=== PATIENT | female | born 1955 | race Caucasian/White ===

== ENCOUNTER → 2016-04-15 | Outpatient (CLI) | payer BC ==
[~2016-04-15] MED LIST: HCTZ12.5T; LSNP10T; osteo bioflex
--- OUTSIDE RECORDS SUMMARY | 2016-04-15 15:40 | XMS REPORT ---
Author Author SARA BULLOCK Organization [employer] Address Unknown Phone Unavailable Care Team Providers Care Engineering Specialist Technician Name Role Phone SARA BULLOCK CP Unavailable Allergies No Known Allergies Problems Problem Type Condition Code Onset Dates Condition Status Assessment Encounter for immunization Z23 Active Medications No Known Medications Procedures Procedure Coding System Code Date FLUARIX QUAD (3 & UP)-GSK-2014 CPT-4 90173 2014 SINGLE IMMUNIZATION ADMIN CPT-4 85340 2014 TDAP (BOOSTRIX) CPT-4 65306 2014 IMMUNIZATION ADMIN, EACH ADD (please include units) CPT-4 10271 2014 Results No Known Results Immunizations Vaccine Administration Date TDAP (BOOSTRIX) 2014 FLUARIX QUAD (3 & UP)-GSK-2014Nov 30, 2014 Summary Purpose [employer] Submission
--- NOTE | 2016-04-17 10:48 | Diagnostic Imaging Report ---
Bilateral screening mammogram The current study was also evaluated with a Computer Aided Detection (CAD) system. Indication: Screening. No current complaints stated on the questionnaire. COMPARISON: 06/03/12. FINDINGS: The breasts are composed of scattered fibroglandular densities. Occasional benign-appearing calcifications seen. Allowing for technique and positional differences, no suspicious change is seen. IMPRESSION: No significant change. ACR BI-RADS Category 2: Benign findings. Result letter will be mailed to the patient. Note: At least 10% of breast cancer is not imaged by mammography. Dictated by: Dictated on workstation # [id number]
== END ==
LOC: RAD 15:37
PROVIDERS: ATTEND Internal Medicine
DX: Z12.31 Encounter for screening mammogram for malignant neoplasm of breast (principal)
CPT/HCPCS: 77067

== ENCOUNTER → 2021-07-10 | Outpatient (CLI) | payer BC ==
[~2021-07-10] VITALS: Ht 165 cm; Wt 151.8 kg
[~2021-07-10] MED LIST changes: +ACETAMINOPHEN 500 MG TAB (TYLENOL) PO PRN; +BEBTELOVIMAB 175 MG/2 ML VIAL IV ONE; +EPINEPHrine INJECTION 1 MG/ML AMP IM PRN; +ONDANSETRON 4 MG/2 ML (SDV) Z0FRAN IV PRN; +diphenhydrAMINE 50 MG/ML INJ (BENADRYL) IV PRN
[2021-07-10 09:00] VITALS: BP 157/92
[2021-07-10 10:37] VITALS: BP 179/89
== END ==
LOC: INFUSION 08:50
PROVIDERS: ATTEND Nurse Practitioner Family
DX: U07.1 COVID-19 (principal)

== ENCOUNTER → 2021-07-15 | Outpatient (CLI) | payer BC ==
[~2021-07-15] MED LIST changes: -ACETAMINOPHEN 500 MG TAB (TYLENOL) PO PRN; -BEBTELOVIMAB 175 MG/2 ML VIAL IV ONE; -EPINEPHrine INJECTION 1 MG/ML AMP IM PRN; -ONDANSETRON 4 MG/2 ML (SDV) Z0FRAN IV PRN; -diphenhydrAMINE 50 MG/ML INJ (BENADRYL) IV PRN
--- NOTE | 2021-07-15 14:54 | Diagnostic Imaging Report ---
INDICATION: Cough. Time of Exam: 1:15 PM Finding: The heart size is normal. The pulmonary vascularity is unremarkable. The lungs are clear. No infiltrate, effusion or pneumothorax is detected. Impression: No acute cardiopulmonary process is detected. Dictated by: Dictated on workstation # [id number]
== END ==
LOC: RAD 12:53
PROVIDERS: ATTEND Nurse Practitioner Family
DX: R05.9 Cough, unspecified (principal); U09.9 Post COVID-19 condition, unspecified
CPT/HCPCS: 71046

== ENCOUNTER → 2021-12-23 | Outpatient (CLI) | payer MEDICARE ==
--- NOTE | 2021-12-23 16:37 | Diagnostic Imaging Report ---
TECHNIQUE: 3-D bilateral screening mammogram The current study was also evaluated with a Computer Aided Detection (CAD) system. COMPARISON: This study was compared to the prior exams of 04/15/2016. There are no current complaints. FINDINGS: The breasts are predominantly fatty. When compared to the prior study there has been no significant change. There is no primary or secondary sign of malignancy noted. IMPRESSION: There is no radiographic evidence for malignancy. IMPRESSION: 1. There is no evidence of malignancy. 2. The patient should have her annual bilateral screening mammogram on schedule in December of 2022. ACR BI-RADS Category 1: Negative. Result letter will be mailed to the patient. Note: At least 10% of breast cancer is not imaged by mammography. Dictated by: Dictated on workstation # [id number]
== END ==
LOC: RAD 09:45
PROVIDERS: ATTEND Internal Medicine
DX: Z12.31 Encounter for screening mammogram for malignant neoplasm of breast (principal)
CPT/HCPCS: 77063; 77067